=== PATIENT | male | born 1950 | race Caucasian/White ===

== ENCOUNTER 2022-01-27 10:18 | Emergency (ER) | payer OTHER ==
[2022-01-27] MEDS ORDERED: Meclizine HCl 25 MG TAB ONE (11:09)
[2022-01-27] MEDS ORDERED: Acetaminophen 500 MG TAB ONE (11:09)
[2022-01-27 11:17] LABS: ALT (SGPT) 22 U/L (8-55); AST (SGOT) 23 U/L (5-34); Albumin 3.8 g/dL (3.4-4.8); Alkaline Phosphatase 78 U/L (40-110); Anion Gap 12 mmol/L (10-20); BUN (Urea Nitrogen) 14 mg/dL (8.4-25.7); Bilirubin, Total 0.8 mg/dL (0.2-1.2); Calc. Creatinine Clearance 0 mL/min (70-130); Calcium 8.9 mg/dL (7.8-10.44); Carbon Dioxide 26 mmol/L (23-31); Chloride 107 mmol/L (98-107); Globulin 2.4 g/dL (2.4-3.5); Glucose 85 mg/dL (83-110); PTT 26.8 sec (22.0-33.0); Potassium 4.2 mmol/L (3.5-5.1); Protein, Total 6.2 g/dL (5.8-8.1); Prothrombin Time 11.1 sec (9.5-12.1); Sodium 141 mmol/L (136-145)
[2022-01-27 11:18] LABS: #Basophils 0.1 10x3/uL (0.0-0.2); #Eosinphils 0.3 10x3/uL (0.0-0.5); #Monocytes 0.7 10x3/uL (0.0-1.1); #Neutrophils 3.8 10x3/uL (1.5-8.4); %Basophils 0.9 % (0.0-2.0); %Eosinophils 4.6 % (0.0-6.0); %Lymphocytes 17.6 % (18.0-47.0); %Monocytes 12.1 % (0.0-10.0); %Neutrophils 64.6 % (40.0-75.0); Hemoglobin 13.5 g/dL (13.5-17.5); Mean Corpuscular HGB CONC 33.6 g/dL (32.0-36.0); Mean Corpuscular Hemoglobin 29.5 pg (27.0-33.0); Mean Corpuscular Volume 87.8 fl (81.2-95.1); Mean Platelet Volume 11.6 fl (7.4-10.4); RBC Distribution Width 13.6 % (11.5-14.5); Red Blood Cell (RBC) Count 4.58 10x6/uL (4.32-5.72); White Blood Cell (WBC) Count 5.9 10x3/uL (3.5-10.5)
[2022-01-27 11:19] LABS: Platelet Count 125 10x3/uL (150-450)
[2022-01-27 12:00] LABS: Large Platelets SLIGHT
[2022-01-27 12:01] LABS: Platelet Morphology Comment Appears Adequate; RBC Morphology Normal
== END 2022-01-27 14:00 | disposition home or self-care (01) ==
LOC: CSHERS 10:18
DX: R42 Dizziness and giddiness (principal); H55.00 Unspecified nystagmus; I10 Essential (primary) hypertension; I25.10 Atherosclerotic heart disease of native coronary artery without angina pectoris; E78.5 Hyperlipidemia, unspecified; M19.90 Unspecified osteoarthritis, unspecified site; G47.30 Sleep apnea, unspecified; Z87.891 Personal history of nicotine dependence; Z87.19 Personal history of other diseases of the digestive system; Z79.82 Long term (current) use of aspirin; Z79.899 Other long term (current) drug therapy
CPT/HCPCS: 70450; 80053; 84484; 85025; 85610; 85730; 86140; 93005; 96360; 96361